=== PATIENT | male | born 1950 | race Caucasian/White ===

== ENCOUNTER 2018-07-05 10:07 | Inpatient (IN) | payer MEDICARE ==
[~2018-07-05] VITALS: Ht 175.3 cm; Wt 77.1 kg
[2018-07-05 10:30] VITALS: BP 109/71
--- NOTE | 2018-07-05 11:27 | PDOC2 ---
KRYSTAL KING SENIOR ACCOUNT DIRECTOR 07/05/18 1127: UROLOGY CONSULT Date of Consult Date of Consult DATE: 07/05/18 TIME: 11:20 Reason for Consult Reason for Consult: Kidney stone Referring Physician Referring Physician: Dr. Plata Identification/Chief Complaint Chief Complaint Kidney stone Source Source: Caregiver, Patient History of Present Illness Reason for Visit: This pleasant 67 year-old male was up in [place] on vacation when he started to have a lot of pain on his left side and left flank. He presented to the ER there where he had a CT scan. They found a 3 mm stone in the meat of his right kidney and a 2 mm stone about 1/[address] down his ureter. This was just this past Tuesday. He was sent home on Flomax and pain and nausea medication and convalesced in [place] through Tuesday. On Tuesday he drove home and today they called Dr. Plata's office, who direct admitted the patient. Currently his pain is about 2/10 to his left flank and left lower abdomen. He is also having intermittent dysuria /burning with urination, and constipation since S . This is the first time he has had any kidney stones. He does admit a history of BPH, but no prostate cancer. He has not been straining his urine. In addition to the kidney stones he is having a lot of difficulty with swallowing since Tuesday, unable to swallow pills or much food/water. Past Medical History GI: Constipation (Since Tuesday ), Other (Esophageal symptoms/difficulty swallowing. ) Renal/: Benign prostatic enlarg. Current Medications Current Medications Current Medications Hydromorphone HCl (Dilaudid) 0.6 mg PRN Q3HRS PRN IVP PAIN; Start 07/05/18 at 10:45; Status UNV Ketorolac Tromethamine (Toradol 30mg Vial) 30 mg PRN Q6HRS PRN IV PAIN; Start 07/05/18 at 10:45; Stop 07/10/18 at 10:44; Status UNV Potassium Chloride/Dextrose/ Sod Cl 1,000 ml @ 150 mls/hr Q6H40M IV ; Start 07/05/18 at 10:45 Sodium Chloride 1,000 ml @ 100 mls/hr Q10H IV ; Start 07/05/18 at 11:15; Status UNV Tamsulosin HCl (Flomax) 0.4 mg DAILY PO ; Start 07/05/18 at 12:00 Allergies Allergies: Coded Allergies: No Known Drug Allergies (Unverified , 07/05/18) ROS Review Of Systems: CONSTITUTIONAL: No fever or chills EYES: No recent changes SKIN: No rash or itching CARDIOVASCULAR: No chest pain, syncope, palpitations, or edema RESPIRATORY: No SOB or cough GASTROINTESTINAL: + nausea/vomiting. + abd pain on the left side. + unable to eat or drink very much since Tuesday NEUROLOGICAL: No headaches or weakness ENDOCRINE: No cold or heat intolerance GENITOURINARY: + Dysuria on and off. Small amount of hematuria/clots on and off. MUSCULOSKELETAL: No back pain or joint pain LYMPHATICS: No enlarged lymph nodes PSYCHIATRIC: No anxiety or depression Physical Exam Physical Exam: General: Pleasant, no acute distress, well groomed Eyes: conjunctiva anicteric, eyes full range of motion ENT: moist oral mucosa, normal dentition Neck: Trachea midline, no masses Respiratory: unlabored breathing, not using accessory muscles, Back: No CVA pain bilaterally on testing. Abdomen: nontender, nondistended, no hepatosplenomegaly, no masses Skin: no rashes or skin lesions on visualized skin Psych: normal mood, affect. Alert and oriented x 3. Vitals VITALS Vital Signs Date Time Temp Pulse Resp B/P (MAP) Pulse Ox O2 Delivery O2 Flow Rate FiO2 07/05/18 10:30 98.7 89 18 109/71 (84) 96 Room Air 98.7 Assessment/Plan Assessment/Plan CBC, CMP, UA stat please KUB stat to check stone position/progress IVF NS at 100 cc/hr Docusate TID for constipation. GI consult for constipation, upper GI symptoms. Continue nausea/pain control. NPO for now. Dr. Motnoya to check on patient later. BLACK MONTOYA MD 07/05/18 1154: UROLOGY CONSULT Assessment/Plan Assessment/Plan 2mm left distal stone, looks very close to uvj on KUB. Recommend spontaneous stone passage given size/location. KRYSTAL KIGN APRN July 05, 2018 11:27 BLACK MONTOYA MD July 05, 2018 11:54
[2018-07-05] MEDS ORDERED: DOCUSATE SODIUM 100 MG CAPSULE. PO PRN (11:30)
[2018-07-05 11:39] LABS: BASO % 0 % (0-3); EOS % 0 % (0-3); HEMATOCRIT 43.6 % (39.0-53.0); HEMOGLOBIN 14.4 g/dL (13.0-17.5); LYMPH % 6 % (24-48); MEAN CORPUSCULAR HEMOGLOBIN 30 pg (25-35); MEAN CORPUSCULAR HGB CONC 33 g/dL (31-37); MEAN CORPUSCULAR VOLUME 92 fL (79-100); MONO # 1.9 x10^3/uL (0.0-1.1); MONO % 11 % (0-9); NEUT # 14.3 x10^3uL (1.8-7.7); NEUT % 83 % (31-73); PLATELET COUNT 218 x10^3/uL (140-400); RED BLOOD COUNT 4.76 x10^6/uL (4.30-5.70); RED CELL DISTRIBUTION WIDTH 13.4 % (11.5-14.5); WHITE BLOOD COUNT 17.2 x10^3/uL (4.0-11.0)
[2018-07-05 11:49] LABS: ALBUMIN 3.2 g/dL (3.4-5.0); ALBUMIN/GLOBULIN RATIO 0.9 (1.0-1.7); CALCIUM 9.1 mg/dL (8.5-10.1); CREATININE 1.2 mg/dL (0.7-1.3); GFR 60.6; POTASSIUM 4.4 mmol/L (3.5-5.1); TOTAL BILIRUBIN 0.8 mg/dL (0.2-1.0); TOTAL PROTEIN 6.9 g/dL (6.4-8.2)
--- NOTE | 2018-07-05 11:49 | RAD ---
KUB, 07/05/2018: HISTORY: Check kidney stone No previous imaging is available at this time for comparison purposes. The renal regions are largely obscured by overlying bowel content. There is a moderate amount of gas throughout the colon. There is also mild gaseous distention of a small bowel loop in the right upper quadrant. Lower pelvic radiopacities are probably phleboliths. A distal ureteral calculus cannot be excluded. There is no evidence of organomegaly. Moderate scattered degenerative changes are present in the spine. IMPRESSION: Increased gas throughout the colon with mild gaseous distention of a small bowel loop in the right upper quadrant. The findings suggest a nonspecific ileus. Electronically signed by: Tai Dugan MD (07/05/2018 11:46 AM) [facility]
--- NOTE | 2018-07-05 12:15 | PDOC2 ---
GI CONSULT Reason For Consult: Constipation, esophageal symptoms HPI: HPI: Very pleasant 67 y/o male who traveled to [place] last week to visit family. Had a normal stool on (06/29). Typically no issues with constipation except when traveling. Did not stool for a few days, began to feel uncomfortable w/ lower abdominal "hardness" and bloating. Took Ex-Lax and passed a small stool on Tuesday. After that, developed severe left flank pain that made him fall down. Went to hospital via ambulance, had a CT scan, and was diagnosed with a kidney stone. Was prescribed [place], Zofran, ibuprofen, and Flomax. When he was home that night, he had a little retching and then hiccups that "shook the bed" and last for 45-60 minutes. Ate a piece of a banana. Since then, hasn't really eaten because he has difficultly swallowing pills and liquids - says it feels like things get stuck in the midchest which is very uncomfortable and he feels like he needs to burp. Eventually pills and liquids pass. No h/o reflux or dysphagia. No vomiting. No hematochezia or melena. No weight loss. No diarrhea. No previous EGD. Per office records, colonoscopy by Dr. Jackson in 2007 showed diverticulosis. No GB, liver, pancreas, or PUD history. No routine use of NSAIDs. PMH: PMH: BPH, diverticulosis tonsillectomy, right shoulder surgery FH: Family History: Cancer (father - testicular and skin) Social History: Smoke: No ALCOHOL: none Drugs: None ROS: GEN: Denies fevers, chills, sweats HEENT: Denies blurred vision, sore throat CV: Denies chest pain RESP: Denies shortness of air, cough GI: Per HPI : +hematuria +dysuria ENDO: Denies weight changes NEURO: Denies confusion, dizziness MSK: Denies weakness, joint pain/swelling SKIN: Denies jaundice, pruritus Vitals: Vitals: Vital Signs Date Time Temp Pulse Resp B/P (MAP) Pulse Ox O2 Delivery O2 Flow Rate FiO2 07/05/18 10:30 98.7 89 18 109/71 (84) 96 Room Air 98.7 Labs: Labs: Laboratory Tests Test 07/05/18 11:25 White Blood Count 17.2 x10^3/uL (4.0-11.0) Red Blood Count 4.76 x10^6/uL (4.30-5.70) Hemoglobin 14.4 g/dL (13.0-17.5) Hematocrit 43.6 % (39.0-53.0) Mean Corpuscular Volume 92 fL (79-100) Mean Corpuscular Hemoglobin 30 pg (25-35) Mean Corpuscular Hemoglobin Concent 33 g/dL (31-37) Red Cell Distribution Width 13.4 % (11.5-14.5) Platelet Count 218 x10^3/uL (140-400) Neutrophils (%) (Auto) 83 % (31-73) Lymphocytes (%) (Auto) 6 % (24-48) Monocytes (%) (Auto) 11 % (0-9) Eosinophils (%) (Auto) 0 % (0-3) Basophils (%) (Auto) 0 % (0-3) Neutrophils # (Auto) 14.3 x10^3uL (1.8-7.7) Lymphocytes # (Auto) 1.0 x10^3/uL (1.0-4.8) Monocytes # (Auto) 1.9 x10^3/uL (0.0-1.1) Eosinophils # (Auto) 0.0 x10^3/uL (0.0-0.7) Basophils # (Auto) 0.0 x10^3/uL (0.0-0.2) Sodium Level 142 mmol/L (136-145) Potassium Level 4.4 mmol/L (3.5-5.1) Chloride Level 104 mmol/L (98-107) Carbon Dioxide Level 28 mmol/L (21-32) Anion Gap 10 (6-14) Blood Urea Nitrogen 19 mg/dL (8-26) Creatinine 1.2 mg/dL (0.7-1.3) Estimated GFR (Cockcroft-Gault) 60.6 BUN/Creatinine Ratio 16 (6-20) Glucose Level 96 mg/dL (70-99) Calcium Level 9.1 mg/dL (8.5-10.1) Total Bilirubin 0.8 mg/dL (0.2-1.0) Aspartate Amino Transf (AST/SGOT) 14 U/L (15-37) Alanine Aminotransferase (ALT/SGPT) 20 U/L (16-63) Alkaline Phosphatase 60 U/L (46-116) Total Protein 6.9 g/dL (6.4-8.2) Albumin 3.2 g/dL (3.4-5.0) Albumin/Globulin Ratio 0.9 (1.0-1.7) Allergies: Coded Allergies: No Known Drug Allergies (Unverified , 07/05/18) Imaging: Imaging: KUB 07/05 HISTORY: Check kidney stone No previous imaging is available at this time for comparison purposes. The renal regions are largely obscured by overlying bowel content. There is a moderate amount of gas throughout the colon. There is also mild gaseous distention of a small bowel loop in the right upper quadrant. Lower pelvic radiopacities are probably phleboliths. A distal ureteral calculus cannot be excluded. There is no evidence of organomegaly. Moderate scattered degenerative changes are present in the spine. IMPRESSION: Increased gas throughout the colon with mild gaseous distention of a small bowel loop in the right upper quadrant. The findings suggest a nonspecific ileus. PE: GEN: NAD HEENT: Atraumatic, PERRL LUNGS: CTAB HEART: RRR ABD: NABS, S/ND/NT EXTREMITY: No edema SKIN: No rashes, no jaundice NEURO/PSYCH: A & O 3 A/P: A/P: Nephrolithiasis, flank pain Lower abd discomfort, bloating, constipation Dysphagia/odynophagia Leukocytosis CRC screen - last in 2007 Diverticulosis -- UA pending. Continue per urology. Reviewed w/ Dr. Lee - Try Relistor for h/o constipation + opioid use. Okay to try clears and ADAT - if doesn't tolerate PO or continues with swallowing issues, could consider EGD. Will also add PPI. Will also ask for CT from [place]. RODERICK SUNSHINE July 05, 2018 12:15
[2018-07-05] MEDS ORDERED: METHYLNALTREXONE 12 MG/0.6 ML VIAL. SQ ONE (12:30)
[2018-07-05 13:27] LABS: % BANDS 3 % (0-9); % LYMPHS 8 % (24-48); % MONOS 9 % (0-10); % SEGS 80 % (35-66); PLT ESTIMATE ADEQUATE (ADEQUATE)
--- NOTE | 2018-07-05 13:28 | HP ---
ADMIT DATE: 07/05/2018 CHIEF COMPLAINT: Flank pain. HISTORY OF PRESENT ILLNESS: A 67-year-old white male known to me, who is normally healthy, was out of town 3 days ago and developed significant left flank and abdominal pain. CT scan showed evidence of a 2 mm stone in the distal left ureter ____ problem since that time. He also had difficulty swallowing pills and liquids, which was only developed during this time and was not preexisting. He is admitted for hydration and pain control at this point. PAST MEDICAL HISTORY: Tonsillectomy and shoulder surgery. CURRENT MEDICATIONS: None. SOCIAL HISTORY: Nonsmoker, physically active, employed, nondrinker. FAMILY HISTORY: Unremarkable. REVIEW OF SYSTEMS: Unremarkable. OBJECTIVE: ENT: All within normal limits. NECK: No masses, nodes or bruits. LUNGS: Clear. CARDIOVASCULAR: Regular rate. No tachycardia. BACK: Tender in the left flank to percussion. ABDOMEN: Soft and tender in the left lower quadrant. No masses or guarding. EXTREMITIES: Unremarkable. ASSESSMENT: Left distal ureteral stone with probably a degree of hydronephrosis. Dysphagia may be secondary to smooth muscle spasm or just generalized pain. PLAN: Hydration, pain control and urologic consultation. He likely will pass this stone spontaneously. HUNTER BYRD MD DR: KEMI/mary JOB#: [id number] / [id number]
--- NOTE | 2018-07-05 13:30 | NUR ---
This nurse taking over for WYATT Zepeda. Pt A&Ox4, VSS, family at bedside. Will continue to monitor and follow POC, pt notified of same.
[2018-07-05] MEDS: TAMSULOSIN 0.4 MG CAP.ER.24H. PO SCH (13:39)
[2018-07-05] MEDS: POTASSIUM CL 20MEQ D5-0.45NACL 1,000 ML IV SCH ×2 (13:41→19:20)
[2018-07-05] MEDS: IV NORMAL SALINE 1000ML BAG 1,000 ML IV SCH ×2 (14:35→20:54)
[2018-07-05 15:00] VITALS: BP 111/74
[2018-07-05 16:07] LABS: BILIRUBIN,URINE NEGATIVE (NEG); CLARITY,URINE CLEAR; COLOR,URINE YELLOW; NITRITE,URINE NEGATIVE (NEG); PH,URINE 5.5; PROTEIN,URINE 30 mg/dL (NEG-TRACE); UROBILINOGEN,URINE 0.2 mg/dL (0.2 mg/dL)
[2018-07-05 16:17] LABS: BACTERIA,URINE FEW /HPF (0-FEW); SQUAMOUS EPITHELIAL CELL,UR OCC /LPF; WBC,URINE 20-40 /HPF (0-4)
[2018-07-05] MEDS: KETOROLAC 30 MG/ML VIAL. IV PRN (16:49)
[2018-07-05] MEDS: HYDROmorphone 2 MG/ML VIAL IVP PRN (16:50)
[2018-07-05] MEDS: PANTOPRAZOLE 40 MG TABLET.DR. PO SCH (16:50)
[2018-07-05 19:00] VITALS: BP 134/69
[2018-07-05 23:00] VITALS: BP 117/67
[2018-07-06] MEDS: POTASSIUM CL 20MEQ D5-0.45NACL 1,000 ML IV SCH ×4 (00:23→22:44)
[2018-07-06 03:00] VITALS: BP 131/76
[2018-07-06] MEDS: KETOROLAC 30 MG/ML VIAL. IV PRN (03:47)
[2018-07-06] MEDS: HYDROmorphone 2 MG/ML VIAL IVP PRN (06:25)
[2018-07-06] MEDS: PANTOPRAZOLE 40 MG TABLET.DR. PO SCH (06:26)
[2018-07-06 07:00] VITALS: BP 133/64
[2018-07-06] MEDS: IV NORMAL SALINE 1000ML BAG 1,000 ML IV SCH (07:13)
--- NOTE | 2018-07-06 08:36 | PDOC ---
Provider Note Provider Note still L flank pain/tender- rest ok, low grade temp- cont iv fluid re stone, cult urine, rest same, should pass soon- dysphagia better after laxation HUNTER BYRD MD July 06, 2018 08:35
--- NOTE | 2018-07-06 08:49 | PDOC ---
SUBJECTIVE Subjective Patient did have some pain today early this am in his left flank.lower back. OBJECTIVE Objective Physical Exam: General appearance: Alert and Oriented Head: Normocephalic, without obvious abnormality Eyes: conjunctivae/corneas clear. PERRL, EOM's intact. Fundi benign Back: CVA + pain on the left side, none on the right. Lungs: Regular respirations, non labored breathing. Abdomen: soft, non-tender throughout . No masses, no organomegaly Pelvic: deferred Vital Signs Vital Signs Date Time Temp Pulse Resp B/P (MAP) Pulse Ox O2 Delivery O2 Flow Rate FiO2 07/06/18 07:00 98.4 78 18 133/64 (87) 95 Room Air 98.4 07/06/18 06:57 16 Room Air 07/06/18 06:25 18 96 Room Air 07/06/18 03:00 99.5 77 18 131/76 (94) 96 Room Air 99.5 07/05/18 23:00 99.8 82 18 117/67 (84) 95 Room Air 99.8 07/05/18 20:15 Room Air 07/05/18 19:00 99.4 81 18 134/69 (90) 91 Room Air 99.4 07/05/18 16:50 Room Air 07/05/18 15:00 98.6 74 18 111/74 (86) 97 Room Air 98.6 07/05/18 13:30 Room Air 07/05/18 13:30 Room Air 07/05/18 10:30 98.7 89 18 109/71 (84) 96 Room Air 98.7 I & O Intake and Output 07/06/18 06:59 Intake Total 744 ml Output Total 540 ml Balance 204 ml Intake Oral 120 ml IV Total 624 ml Output Urine Total 540 ml # Voids 3 PHYSICAL EXAM Physical Exam Physical Exam: General appearance: Alert and Oriented Head: Normocephalic, without obvious abnormality Eyes: conjunctivae/corneas clear. PERRL, EOM's intact. Fundi benign Back: CVA + pain on the left side, none on the right. Lungs: Regular respirations, non labored breathing. Abdomen: soft, non-tender throughout . No masses, no organomegaly Pelvic: deferred ASSESSMENT/PLAN Assessment/Plan Explained to patient kidney stone is small, in the lower part of the Ureter and should pass easily. Continue expulsive therapy (IVF, Flomax) Continue to strain urine. Continue appropriate bowel management (pt still constipated). OK for patient to eat. COMMENT Lab Laboratory Tests Test 07/05/18 11:25 07/05/18 15:30 White Blood Count 17.2 x10^3/uL (4.0-11.0) Red Blood Count 4.76 x10^6/uL (4.30-5.70) Hemoglobin 14.4 g/dL (13.0-17.5) Hematocrit 43.6 % (39.0-53.0) Mean Corpuscular Volume 92 fL (79-100) Mean Corpuscular Hemoglobin 30 pg (25-35) Mean Corpuscular Hemoglobin Concent 33 g/dL (31-37) Red Cell Distribution Width 13.4 % (11.5-14.5) Platelet Count 218 x10^3/uL (140-400) Neutrophils (%) (Auto) 83 % (31-73) Lymphocytes (%) (Auto) 6 % (24-48) Monocytes (%) (Auto) 11 % (0-9) Eosinophils (%) (Auto) 0 % (0-3) Basophils (%) (Auto) 0 % (0-3) Neutrophils # (Auto) 14.3 x10^3uL (1.8-7.7) Lymphocytes # (Auto) 1.0 x10^3/uL (1.0-4.8) Monocytes # (Auto) 1.9 x10^3/uL (0.0-1.1) Eosinophils # (Auto) 0.0 x10^3/uL (0.0-0.7) Basophils # (Auto) 0.0 x10^3/uL (0.0-0.2) Segmented Neutrophils % 80 % (35-66) Band Neutrophils % 3 % (0-9) Lymphocytes % 8 % (24-48) Monocytes % 9 % (0-10) Platelet Estimate Adequate (ADEQUATE) Sodium Level 142 mmol/L (136-145) Potassium Level 4.4 mmol/L (3.5-5.1) Chloride Level 104 mmol/L (98-107) Carbon Dioxide Level 28 mmol/L (21-32) Anion Gap 10 (6-14) Blood Urea Nitrogen 19 mg/dL (8-26) Creatinine 1.2 mg/dL (0.7-1.3) Estimated GFR (Cockcroft-Gault) 60.6 BUN/Creatinine Ratio 16 (6-20) Glucose Level 96 mg/dL (70-99) Calcium Level 9.1 mg/dL (8.5-10.1) Total Bilirubin 0.8 mg/dL (0.2-1.0) Aspartate Amino Transf (AST/SGOT) 14 U/L (15-37) Alanine Aminotransferase (ALT/SGPT) 20 U/L (16-63) Alkaline Phosphatase 60 U/L (46-116) Total Protein 6.9 g/dL (6.4-8.2) Albumin 3.2 g/dL (3.4-5.0) Albumin/Globulin Ratio 0.9 (1.0-1.7) Urine Color Yellow Urine Clarity Clear Urine pH 5.5 Urine Specific [place] 1.020 Urine Protein 30 mg/dL (NEG-TRACE) Urine Glucose (UA) Negative mg/dL (NEG) Urine Ketones (Stick) >=80 mg/dL (NEG) Urine Blood Large (NEG) Urine Nitrite Negative (NEG) Urine Bilirubin Negative (NEG) Urine Urobilinogen Dipstick 0.2 mg/dL (0.2 mg/dL) Urine Leukocyte Esterase Small (NEG) Urine RBC 6-10 /HPF (0-2) Urine WBC 20-40 /HPF (0-4) Urine Squamous Epithelial Cells Occ /LPF Urine Bacteria Few /HPF (0-FEW) Urine Mucus Mod /LPF KRYSTAL KING APRN July 06, 2018 08:49
[2018-07-06 10:07] LABS: ALBUMIN 2.5 g/dL (3.4-5.0); ALBUMIN/GLOBULIN RATIO 0.8 (1.0-1.7); CREATININE 1.1 mg/dL (0.7-1.3); POTASSIUM 3.3 mmol/L (3.5-5.1); TOTAL BILIRUBIN 0.7 mg/dL (0.2-1.0); TOTAL PROTEIN 5.8 g/dL (6.4-8.2)
[2018-07-06] MEDS: TAMSULOSIN 0.4 MG CAP.ER.24H. PO SCH (10:09)
[2018-07-06 10:23] LABS: BASO % 0 % (0-3); EOS # 0.1 x10^3/uL (0.0-0.7); EOS % 1 % (0-3); HEMATOCRIT 38.5 % (39.0-53.0); HEMOGLOBIN 13.1 g/dL (13.0-17.5); LYMPH % 8 % (24-48); MEAN CORPUSCULAR HEMOGLOBIN 31 pg (25-35); MEAN CORPUSCULAR HGB CONC 34 g/dL (31-37); MEAN CORPUSCULAR VOLUME 90 fL (79-100); MONO # 1.5 x10^3/uL (0.0-1.1); MONO % 12 % (0-9); NEUT # 9.7 x10^3uL (1.8-7.7); NEUT % 79 % (31-73); PLATELET COUNT 208 x10^3/uL (140-400); RED BLOOD COUNT 4.27 x10^6/uL (4.30-5.70); RED CELL DISTRIBUTION WIDTH 13.6 % (11.5-14.5); WHITE BLOOD COUNT 12.3 x10^3/uL (4.0-11.0)
[2018-07-06 11:18] VITALS: BP 123/75
--- NOTE | 2018-07-06 11:30 | NUR ---
SW following for discharge planning. Discussed with RN, pt is from home with . Possible discharge home today with self care. RN advised no SW needs.
--- NOTE | 2018-07-06 12:45 | PDOC ---
Subjective: Subjective: Tolerating jello - dysphagia "100%" resolved. +flatus (said more yesterday than today) and "a big belch" at 3:00 a.m. Flank pain. No n/v. No stools. Objective: Vital Signs: Vital Signs Date Time Temp Pulse Resp B/P (MAP) Pulse Ox O2 Delivery O2 Flow Rate FiO2 07/06/18 11:18 97.5 74 18 123/75 (91) 95 Room Air 97.5 Labs: Laboratory Tests Test 07/05/18 15:30 07/06/18 09:28 Urine Color Yellow Urine Clarity Clear Urine pH 5.5 Urine Specific [place] 1.020 Urine Protein 30 mg/dL Urine Glucose (UA) Negative mg/dL Urine Ketones (Stick) >=80 mg/dL Urine Blood Large Urine Nitrite Negative Urine Bilirubin Negative Urine Urobilinogen Dipstick 0.2 mg/dL Urine Leukocyte Esterase Small Urine RBC 6-10 /HPF Urine WBC 20-40 /HPF Urine Squamous Epithelial Cells Occ /LPF Urine Bacteria Few /HPF Urine Mucus Mod /LPF White Blood Count 12.3 x10^3/uL Red Blood Count 4.27 x10^6/uL Hemoglobin 13.1 g/dL Hematocrit 38.5 % Mean Corpuscular Volume 90 fL Mean Corpuscular Hemoglobin 31 pg Mean Corpuscular Hemoglobin Concent 34 g/dL Red Cell Distribution Width 13.6 % Platelet Count 208 x10^3/uL Neutrophils (%) (Auto) 79 % Lymphocytes (%) (Auto) 8 % Monocytes (%) (Auto) 12 % Eosinophils (%) (Auto) 1 % Basophils (%) (Auto) 0 % Neutrophils # (Auto) 9.7 x10^3uL Lymphocytes # (Auto) 1.0 x10^3/uL Monocytes # (Auto) 1.5 x10^3/uL Eosinophils # (Auto) 0.1 x10^3/uL Basophils # (Auto) 0.0 x10^3/uL Sodium Level 141 mmol/L Potassium Level 3.3 mmol/L Chloride Level 106 mmol/L Carbon Dioxide Level 25 mmol/L Anion Gap 10 Blood Urea Nitrogen 16 mg/dL Creatinine 1.1 mg/dL Estimated GFR (Cockcroft-Gault) 67.0 BUN/Creatinine Ratio 15 Glucose Level 117 mg/dL Calcium Level 8.0 mg/dL Total Bilirubin 0.7 mg/dL Aspartate Amino Transf (AST/SGOT) 11 U/L Alanine Aminotransferase (ALT/SGPT) 16 U/L Alkaline Phosphatase 52 U/L Total Protein 5.8 g/dL Albumin 2.5 g/dL Albumin/Globulin Ratio 0.8 PE: GEN: NAD LUNGS: CTAB HEART: RRR ABD: quiet BS, soft, non-tender NEURO/PSYCH: A & O 3 A/P: Nephrolithiasis Constipation/ileus likely related to above Dysphagia/odynophagia - resolved -- Will review w/ Dr. Lee - ?repeat x-ray and/or Relistor Would keep to clears for now. RODERICK SUNSHINE July 06, 2018 12:45
[2018-07-06] MEDS ORDERED: POLYETHYLENE GLYCOL 3350 17 GM PACKET. PO PRN (14:15)
[2018-07-06] MEDS ORDERED: METHYLNALTREXONE 12 MG/0.6 ML VIAL. SQ ONE (14:15)
[2018-07-06 15:17] VITALS: BP 117/65
[2018-07-06] MEDS: LUBIPROSTONE 8 MCG CAPSULE PO SCH (18:03)
[2018-07-06 19:00] VITALS: BP 114/62
[2018-07-06 23:00] VITALS: BP 127/55
[2018-07-07 03:00] VITALS: BP 132/70
[2018-07-07] MEDS: POTASSIUM CL 20MEQ D5-0.45NACL 1,000 ML IV SCH ×2 (05:37→07:42)
[2018-07-07] MEDS: PANTOPRAZOLE 40 MG TABLET.DR. PO SCH (06:24)
[2018-07-07 07:00] VITALS: BP 124/67
[2018-07-07] MEDS: LUBIPROSTONE 8 MCG CAPSULE PO SCH (07:51)
[2018-07-07] MEDS: TAMSULOSIN 0.4 MG CAP.ER.24H. PO SCH (07:51)
--- NOTE | 2018-07-07 08:49 | PDOC ---
Provider Note Provider Note [id number] HUNTER BYRD MD July 07, 2018 08:49
[2018-07-07] MEDS ORDERED: MAGNESIUM CITRATE 296 ML SOLUTION. PO ONE (09:00)
--- NOTE | 2018-07-07 09:10 | NUR ---
Discharge Note: CIARA QUINN QUINCY Discharge instructions and discharge home medications reviewed with Patient and a copy given. All questions have been answered and understanding verbalized. The following instructions and handouts were given: information about kidney stones. Discontinued lines and drains: IV line in left AC removed, catheter tip intact. Patient discharged to home with self care with , patient ambulated to discharge vehicle.
--- NOTE | 2018-07-07 09:18 | PDOC ---
Subjective: Subjective: Left flank ache. Passing gas, no stool. No abd pain or dysphagia. Objective: Objective: D/w Dr. Plata - plans for Mag Citrate and DC. Vital Signs: Vital Signs Date Time Temp Pulse Resp B/P (MAP) Pulse Ox O2 Delivery O2 Flow Rate FiO2 07/07/18 07:29 Room Air 07/07/18 07:00 98.0 61 20 124/67 (86) 96 98.0 Labs: Laboratory Tests Test 07/06/18 09:28 White Blood Count 12.3 x10^3/uL Red Blood Count 4.27 x10^6/uL Hemoglobin 13.1 g/dL Hematocrit 38.5 % Mean Corpuscular Volume 90 fL Mean Corpuscular Hemoglobin 31 pg Mean Corpuscular Hemoglobin Concent 34 g/dL Red Cell Distribution Width 13.6 % Platelet Count 208 x10^3/uL Neutrophils (%) (Auto) 79 % Lymphocytes (%) (Auto) 8 % Monocytes (%) (Auto) 12 % Eosinophils (%) (Auto) 1 % Basophils (%) (Auto) 0 % Neutrophils # (Auto) 9.7 x10^3uL Lymphocytes # (Auto) 1.0 x10^3/uL Monocytes # (Auto) 1.5 x10^3/uL Eosinophils # (Auto) 0.1 x10^3/uL Basophils # (Auto) 0.0 x10^3/uL Sodium Level 141 mmol/L Potassium Level 3.3 mmol/L Chloride Level 106 mmol/L Carbon Dioxide Level 25 mmol/L Anion Gap 10 Blood Urea Nitrogen 16 mg/dL Creatinine 1.1 mg/dL Estimated GFR (Cockcroft-Gault) 67.0 BUN/Creatinine Ratio 15 Glucose Level 117 mg/dL Calcium Level 8.0 mg/dL Total Bilirubin 0.7 mg/dL Aspartate Amino Transf (AST/SGOT) 11 U/L Alanine Aminotransferase (ALT/SGPT) 16 U/L Alkaline Phosphatase 52 U/L Total Protein 5.8 g/dL Albumin 2.5 g/dL Albumin/Globulin Ratio 0.8 PE: GEN: NAD LUNGS: CTAB HEART: RRR, ABD: good BS today, soft, non-tender NEURO/PSYCH: A & O 3 A/P: Nephrolithiasis, constipation -- Better - ?passed stone No stools despite Relistor x 2 and Amitiza - did not get enema yet - plans for Mag Citrate and then DC to home. Due for outpt screening colonoscopy - our office will contact to schedule. RODERICK SUNSHINE July 07, 2018 09:18
--- NOTE | 2018-07-07 18:37 | DS ---
DATE OF DISCHARGE: 07/07/2018 HOSPITAL SUMMARY: This 67-year-old white male came in with an outpatient evaluation, which showed a small distal left ureteral stone and he continued to have pain, nausea, vomiting, dysphagia, was in for IV fluids. He was afebrile. Chemistry profile was unremarkable. His urinalysis showed white blood cells and blood and his white count was elevated at 17,200 and came down with fluids. KUB showed evidence of possible ileus, but no other acute findings. He was given IV fluids, Relistor for constipation and Flomax. His dysphagia resolved, his urine output picked up and he has had no further flank pain in the last 24 hours. His constipation has persisted despite Amitiza and Relistor, so we will give him a dose of magnesium citrate today and discharge and follow as an outpatient. FINAL DIAGNOSES: 1. Left distal ureteral stone, likely passed. 2. Dysphagia, resolved. 3. Constipation, iatrogenic. OPERATIONS, PROCEDURES, COMPLICATIONS: None. CONSULTATIONS: Dr. Montoya and Dr. Lee. DISPOSITION: We will continue Flomax at home as he has been benefiting from urinary flow with this. He will use stool softeners and MiraLax as needed at home with high fiber diet and good fluid intake and call me if there is any further problem in regards to the stone, which should no longer be present. HUNTER BYRD MD DR: KEMI/mary JOB#: [id number] / [id number]
== END 2018-07-07 09:10 | disposition home or self-care (01) | DRG 694 ==
LOC: 4 NORTH 10:21
PROVIDERS: ADMIT Family Medicine; ATTEND Family Medicine
DX: N20.2 Calculus of kidney with calculus of ureter (principal); K57.90 Diverticulosis of intestine, part unspecified, without perforation or abscess without bleeding; N40.0 Benign prostatic hyperplasia without lower urinary tract symptoms; K59.00 Constipation, unspecified; F11.90 Opioid use, unspecified, uncomplicated; R13.10 Dysphagia, unspecified; Z80.9 Family history of malignant neoplasm, unspecified
CPT/HCPCS: 36415; 74018; 80053; 81001; 85007; 85025; 87086; J1170; J1885; J2212; J7030

== ENCOUNTER 2019-04-12 18:01 | Emergency (ER) | payer MEDICARE ==
[~2019-04-12] VITALS: Ht 177.8 cm; Wt 75.0 kg
[2019-04-12 18:16] VITALS: BP 125/57
--- NOTE | 2019-04-12 18:46 | PHYS DOC ---
Past Medical History Past Medical History: Other Additional Past Medical Histor: "PROSTATE PROBLEM" Past Surgical History: No Surgical History Smoking Status: Never Smoker Alcohol Use: None Adult General Chief Complaint Chief Complaint: UPPER EXTREMITY PAIN HPI HPI Patient is a 68 year old male who presents with right shoulder pain that is been ongoing since this morning. The patient states that he fell jumping out of the back of a truck on Tuesday and then this afternoon his right shoulder started hurting extremely badly. The patient states he took a hydrocodone around 430 but the pain does not helped patient states he is also had ibuprofen. The patient is unable to fully lift his right arm. The patient also swelling to the right elbow which is where the impact from the trauma was. Complete ROS were reviewed and found to be within normal limits, except as documented in the HPI Allergies Allergies Allergies Coded Allergies Type Severity Reaction Last Updated Verified No Known Drug Allergies 07/05/18 No Physical Exam Physical Exam Constitutional: Well developed, well nourished, no acute distress, non-toxic appearance. [] HENT: Normocephalic, atraumatic, bilateral external ears normal, oropharynx moist, no oral exudates, nose normal. [] Extremities: Positive drop arm test on his right arm. Tenderness to the right humerus, range of motion is not intact to the right arm. Patient is unable to lift the arm up. Edema noted to the right elbow. Neurologic: Alert and oriented X 3, normal motor function, normal sensory function, no focal deficits noted. [] Psychologic: Affect normal, judgement normal, mood normal. [] Current Patient Data Vital Signs Vital Signs Date Time Temp Pulse Resp B/P (MAP) Pulse Ox O2 Delivery O2 Flow Rate FiO2 04/12/19 18:16 98.7 91 16 125/57 (79) 96 Room Air 98.7 EKG EKG [] Radiology/Procedures Radiology/Procedures [][facility] [address] [place], [place] [id number] IMAGING REPORT Signed PATIENT: JEANNIE QUINN ACCOUNT: [id number] : 1950 LOCATION: ER AGE: 68 SEX: M EXAM STATUS: REG ER ORD. PHYSICIAN: RODRIGUES,FAISAL MARINA MANAGER REASON: fall PROCEDURE: ELBOW RIGHT 3V Three views right shoulder History: pain Internally and externally rotated AP of shoulder obtained, as well as "Y" view. The glenohumeral relationship is normal. The visualized osseous structures appear normal. There is consultation within the rotator cuff. Impression: No acute findings. end impression 3 views right elbow: AP lateral oblique views The visualized osseous structures appear normal. IMPRESSION: No acute findings. End impression 2 views right humerus: AP lateral views The visualized osseous structures appear normal. IMPRESSION: No acute findings. Electronically signed by: Jayson Pryor III, MD (04/12/2019 7:29 PM) [id number] DICTATED and SIGNED BY: JAYSON PRYOR III, MD DATE: 04/12/191928 Course & Med Decision Making Course & Med Decision Making Pertinent Labs and Imaging studies reviewed. (See chart for details) We will get imaging. Imaging is unremarkable. Will place in shoulder immobilizer. Likely Rotator cuff injury. Dragon Disclaimer Dragon Disclaimer This electronic medical record was generated, in whole or in part, using a voice recognition dictation system. Departure Departure Impression: Primary Impression: Acute shoulder pain Disposition: 01 HOME, SELF-CARE Condition: STABLE Referrals: HUNTER BYRD MD (PCP) Patient Instructions: Rotator Cuff Injury Additional Instructions: Thank you for visiting [facility]. We appreciate you trusting us with your care. If any additional problems come up don't hesitate to return to visit us. Please follow up with your primary care provider so they can plan additional care if needed and know about the problem that you had. If symptoms worsen come back to the Emergency Department. Any concerning symptoms that start such as chest pain, shortness of air, weakness or numbness on one side of the body, running high fevers or any other concerning symptoms return to the ER. Please fill your medications at any pharmacy and follow the prescription instructions. Scripts Hydrocodone/Apap 5-325 (NORCO 5-325 TABLET) 1 Each Tablet 1 TAB PO PRN Q6HRS PRN for PAIN for 3 Days, #10 TAB 0 Refills Prov: RODRIGUESFAISAL APRN 04/12/19 FAISAL RODRIGUES APRN Apr 12, 2019 18:46
--- NOTE | 2019-04-12 19:31 | RAD ---
Three views right shoulder History: pain Internally and externally rotated AP of shoulder obtained, as well as "Y" view. The glenohumeral relationship is normal. The visualized osseous structures appear normal. There is consultation within the rotator cuff. Impression: No acute findings. end impression 3 views right elbow: AP lateral oblique views The visualized osseous structures appear normal. IMPRESSION: No acute findings. End impression 2 views right humerus: AP lateral views The visualized osseous structures appear normal. IMPRESSION: No acute findings. Electronically signed by: Vaibhav Mccullough III, MD (04/12/2019 7:29 PM) [id number]
[2019-04-12] MEDS ORDERED: HYDR-3164 PO (19:42)
== END 2019-04-12 20:05 | disposition home or self-care (01) ==
LOC: ER 18:01
DX: M25.511 Pain in right shoulder (principal); R60.0 Localized edema; G89.11 Acute pain due to trauma; W18.39XA Other fall on same level, initial encounter; Y93.89 Activity, other specified; Y92.89 Other specified places as the place of occurrence of the external cause; Y99.8 Other external cause status
CPT/HCPCS: 29105; 73030; 73060; 73080; 99284-25